=== PATIENT | male | born 1940 | race African-American/Black ===

== ENCOUNTER → 2017-07-04 | Day surgery (SDC) | payer OTHER ==
[~2017-07-04] VITALS: Ht 182.9 cm; Wt 78.5 kg
[~2017-07-04] MED LIST: ANAG.5 PO; CART120C PO; CHLORHEXIDINE GLUCONATE 2 % 1 PACK (2 CLOTHS) TOPICAL PRN; CLINDAMYCIN 600 MG/NS 100 ML IV SCH; CLINDAMYCIN PHOS 900 MG/6 ML VIAL ONE; INSULIN HUMAN REGULAR 1,000 UNITS/10 ML VIAL SQ PRN; LACTATED RINGER'S 1000 ML IV PRN; LINA145C PO; LOSA50TA2 PO; METOPROLOL TARTRATE 25 MG TAB PO PRN; OFLOXACIN 0.3% OPTH SOLN 5 ML BTL ONE; POVIDONE IODINE 5% (ANTISEPSIS KIT) 4 APPLICATIONS EACH NARE PRN; PRAV40TA2 PO; PRIM50TA5 PO; SODIUM CHLORID 0.9% 500 ML IV PRN; SODIUM CHLORIDE 0.9% INJ 100 ML ONE; TAMS0.4C4 PO
[2017-07-04 08:55] VITALS: BP 147/75; PULSE 75; RESP 16; TEMP 98.3; O2SAT 99
--- NOTE | 2017-07-04 21:23 | EKG ---
Date Performed: 07/04/2017 Time Performed: 07:11:55 PTAGE: 76 years EKG: Sinus rhythm NORMAL ECG PREVIOUS TRACING : 07/04/2017 07.08 Compared to prior tracing no significant change DOCTOR: Selena Hemphill Interpretating Date/Time 07/04/2017 21:22:00
--- NOTE | 2017-07-20 09:19 | MP ---
cc: DAISY CHENEY M.D. DATE OF SURGERY July 04, [address] Daisy Cheney PREOPERATIVE DIAGNOSIS Eustachian tube dysfunction. POSTOPERATIVE DIAGNOSIS Eustachian tube dysfunction. OPERATION PERFORMED Right myringotomy with placement of pressure equalizing tube. INDICATIONS As documented in the history and physical. DESCRIPTION OF OPERATION The patient was taken to OR #2 and placed in the supine position. Following induction of general anesthesia and intubation, using a laryngeal mask apparatus, the right ear was examined under the microscope and cleaned with a curette. A myringotomy was made in the posterior inferior quadrant and tympanum was aspirated of the thick mucoid effusion. A T-type pressure equalizing tube was then advanced into the opening and the canal was filled with Floxin otic drops. The procedure was terminated. The patient was reversed from anesthesia and taken to recovery in good condition. There were no complications. Blood loss less than five. MD IGNACIO Farnsworth/OPAL /8:03 AM /9:16 AM
== END | disposition home or self-care (01) ==
LOC: PHSDC 06:12
PROVIDERS: ATTEND Otolaryngology
DX: H69.81 Other specified disorders of Eustachian tube, right ear (principal); I10 Essential (primary) hypertension
CPT/HCPCS: 00126; 69436; 93005; J7120